=== PATIENT | male | born 1955 | race Caucasian/White ===

== ENCOUNTER 2019-02-07 12:08 | Emergency (ER) | payer BC, OTHER ==
[2019-02-07 12:26] VITALS: BP 142/84; PULSE 65; O2SAT 98
--- NOTE | 2019-02-07 12:33 | ERPHSYRPT ---
- History of Present Illness Time Seen by Provider: 02/07/19 12:20 Source: patient, family Exam Limitations: no limitations Patient Subjective Stated Complaint: Pt began having right lower back pain that radiates past the hip to the knee approx 1 week ago, some numbness and tingling in the right leg, denies any injury, rates pain 5/10 Triage Nursing Assessment: Pt walked into the ER with a stable gait, vitals wnl , pulses normal, denies N&V, reports having the same issue approx a year ago, no visible markings, denies injury Physician History: low-back pain radiating down to the right leg for last 1 week. Patient says actually it is getting better and today is the best he has ever felt after the pain started. His job wanted him to be checked out that's why he is here. Patient had similar symptoms a year ago it got better with medication. Patient denies any injury. Patient states that at his job he has lived with all the time so he might have twisted it wrong. Method of Injury: unknown Occurred: last week Quality: constant Severity of Pain-Max: moderate Severity of Pain-Current: mild Lower Extremities Pain: hip: right Modifying Factors: Improves With: nothing Associated Symptoms: none, No dizzy, No seizure, No snapping sensation, No popping sensation Allergies/Adverse Reactions: No Known Drug Allergies Allergy (Verified 02/07/19 12:26) Home Medications: Levetiracetam 500 mg PO BID 02/07/19 [History] - Review of Systems Constitutional: No Fever, No Chills Eyes: No Symptoms Ears, Nose, & Throat: No Symptoms Respiratory: No Cough, No Dyspnea Cardiac: No Chest Pain, No Edema, No Syncope Abdominal/Gastrointestinal: No Abdominal Pain, No Nausea, No Vomiting, No Diarrhea Genitourinary Symptoms: No Dysuria Musculoskeletal: Other (low back pain radiating down to the right lower extremity), No Back Pain, No Neck Pain Skin: No Rash Neurological: No Dizziness, No Focal Weakness, No Lethargy, No Paralysis, No Parasthesia, No Sensory Changes, No Speech Changes Psychological: No Symptoms Endocrine: No Symptoms All Other Systems: Reviewed and Negative - Past Medical History Neurological History: Seizures - Past Surgical History Past Surgical History: Yes - Social History Smoking Status: Current every day smoker How long have you smoked: 47 years Exposure to second hand smoke: Yes Drug Use: none Patient Lives Alone: No - Nursing Vital Signs Nursing Vital Signs: Initial Vital Signs Temperature 98.8 F 02/07/19 12:16 Pulse Rate 65 02/07/19 12:16 Blood Pressure 142/84 02/07/19 12:16 O2 Sat by Pulse Oximetry 98 02/07/19 12:16 Pain Scale Pain Intensity [Right Lower 5 Back] Pain Intensity 5 - Physical Exam General Appearance: alert Eyes, Ears, Nose, Throat Exam: moist mucous membranes Neck Exam: non-tender, supple Cardiovascular/Respiratory Exam: chest non-tender, normal breath sounds, regular rate/rhythm, no respiratory distress Gastrointestinal/Abdominal Exam: non-tender, guarding Back Exam: normal inspection, No vertebral tenderness Hips Exam: right: non-tender, normal inspection, normal range of motion, no evidence of injury Legs Exam: right leg: non-tender, normal inspection Knees Exam: right knee: non-tender, normal inspection Ankle Exam: right ankle: non-tender, normal inspection Foot Exam: right foot: non-tender, normal inspection DTR - Lower Extremities Exam: knee (R): 2+, knee (L): 2+, ankle (R): 2+, ankle ( L): 2+ Neuro/Tendon Exam: normal sensation, normal motor functions, normal tendon functions, responds to pain, no evidence tendon injury Mental Status Exam: alert, oriented x 3, cooperative Skin Exam: normal color, warm, dry SpO2 Interpretation: normal (Right hip area pain radiating down to the right lower extremity.) SpO2: 98 - Course Nursing assessment & vital signs reviewed: Yes - Progress Progress: unchanged Counseled pt/family regarding: diagnosis, need for follow-up (advised patient to follow up with PCP for further diagnosis and workup. And also advised to take medicine as prescribed) - Departure Departure Disposition: Home Clinical Impression: Lumbago with sciatica, right side Qualifiers: Chronicity: acute Back pain laterality: right Qualified Code(s): M54.41 - Lumbago with sciatica, right side Condition: Stable Critical Care Time: No Referrals: EDWIN ALMONTE MD [Primary Care Provider] - Prescriptions: Indomethacin 25 mg PO BID 5 Days #10 capsule Omeprazole 20 mg PO DAILY 5 Days #5 capsule.
== END 2019-02-07 13:00 | disposition home or self-care (01) ==
LOC: ED 12:08
DX: M54.41 Lumbago with sciatica, right side (principal)
CPT/HCPCS: 99283